=== PATIENT | female | born 1990 | race Caucasian/White ===

== ENCOUNTER 2019-11-05 16:09 | Outpatient (CLI) | payer BC, SELFPAY ==
--- NOTE | 2019-11-05 | USCV_ITS ---
Doug Della Age: 29 Gender: F : 1990 Exam Date: 11/05/2019 16:29 Ordering Phys: Kimmie Gomez Technologist: Gayla Marino Exam Location: [facility] [place] Indication: LT GROIN PAIN HISTORY: Lower extremity pain. PROCEDURES: Examined were the left greater saphenous, common femoral, femoral, profunda, popliteal, posterior tibial veins, and peroneal trunk.. FINDINGS: All veins examined appear free of thrombus. No filling defects on color Doppler flow analysis. Vein flow and caliber vary with respiration. Increase in venous flow with augmentation. All veins appear compressible.. CONCLUSIONS No evidence of left lower extremity DVT. Prelim results called to Kimmie Gomez @ 1635. Pt released per ordering physician. Alan Jewell MD (Electronically Signed) Final Date: 05 November 2019 16:43 S
== END 2019-11-05 16:10 | disposition home or self-care (01) ==
LOC: RAD 16:14
PROVIDERS: Family Provider Family Medicine; PCP Nurse Practitioner Family; Visit Provider Nurse Practitioner Family
DX: R10.32 Left lower quadrant pain (principal); M25.552 Pain in left hip
CPT/HCPCS: 93971

== ENCOUNTER → 2019-11-18 10:44 | Outpatient (BNVA) | payer BC, SELFPAY | PROVIDERS: Family Provider Family Medicine; PCP Nurse Practitioner Family; Referring Provider Nurse Practitioner Family; Visit Provider Otolaryngology | DX: H92.01 Otalgia, right ear (principal); J34.2 Deviated nasal septum; J34.3 Hypertrophy of nasal turbinates; J32.9 Chronic sinusitis, unspecified | CPT/HCPCS: 99203; 99214 ==

== ENCOUNTER 2019-11-26 07:40 | Day surgery (SDC) | payer BC, SELFPAY ==
[2019-11-24 10:24] VITALS: BMI 34.7
[2019-11-24 11:03] LABS: OR HCG Qualitative Urine Negative (Negative)
--- NOTE | 2019-11-24 11:08 | P.ANESASSM_ITS ---
Pre-Anesthetic Assessment Pre-Anesthetic Assessment: Height/Weight: Height 1.57 m Weight 86.183 kg Preop Diagnosis: Desire permanent sterilization Proposed Procedure: Operation Date: 11/26/19 07:00 Proposed Procedures p Laparoscopic Tubal Fulguration 88871 Z30.2(Not Applicable) - Florentino Pate MD s Laparoscopic Salpingectomy(Not Applicable) - Florentino Pate MD Social: Social History: No alcohol and No tobacco Exam: Pre-Anes Outpt Exam: alert, oriented x 3, clear to auscultation bila terally and regular rate & rhythm Airway: Submandibular: WNL Cervical ROM: WNL MP: 2 Dentition: Partials (upper) History/ROS: No significant history except as noted Pulmonary: Pulmonary: None reported CV/HEM: CV/HEM: HTN : : None reported Hepatic: Hepatic: None reported GI: GI: GERD (occ) Metabolic: Metabolic: None reported Musc/skel: Musc/skel: None reported Neuropsych: Neuropsych: Anxiety and Depression Anesthetic Plan: ASA status: 2 Anesthesia: Anesthesia Evaluation and General Risk of > 500 ml blood loss (7ml/kg in children): No PFSH Anesthesia PFSH: Medical History Chronic sinusitis Hypertension Nasal septal deformity Nasal turbinate hypertrophy Otalgia Patient denies medical problems Denies history of: Denies diabetes, asthma, hypertension, seizures, DVT/PE, Cardia, coughing, thyroid problems Surgical History H/O colposcopy with cervical biopsy LEEP done on 05/23/2018 at [facility] [place] by Dr. Villa for PAULA-2. Pathology showed anterior lip with [id number] clear, posterior lip-no dysplasia, ECC benign. Hx of tonsillectomy (~02/2014) Family History Grandmother Diabetes Maternal Hypertension maternal Father Hypertension Thyroid condition Grandfather Stroke paternal Unknown Patient denies medical problems Denies family history: Breast, uterine, ovarian, colon cancer, DVT/PE Social History Smoking and tobacco status: never smoked Alcohol intake: never Data Anesthesia Other Labs: Laboratory Results - last 48 hr 11/24/19 10:06 Urine HCG, Qual Negative Cardiac Studies: No Data to Display
[2019-11-24 11:53] LABS: Add Urine Microscopic? NO
[2019-11-24 11:59] LABS: Basophils % 0.2 %; Eosinophils # 0.1 10^3/uL (0.0-0.8); Eosinophils % 1.4 %; Hematocrit 40.9 % (37.0-47.0); Hemoglobin 13.1 g/dL (11.5-15.3); Lymphocytes # 1.7 10^3/uL (0.8-4.8); Lymphocytes % 28.7 %; Mean Corpuscular Hemoglobin 27.2 pg (28.0-34.0); Mean Corpuscular Volume 84.9 fL (81-99); Mean Platelet Volume 9.9 fL (7.4-10.4); Monocytes # 0.4 10^3/uL (0.2-0.9); Neutrophils # 3.7 10^3/uL (1.8-7.7); Neutrophils % 63.5 %; Nucleated Red Blood Cells % 0 %; Platelet Count 275 10^3/cmm (130-400); Red Blood Count 4.82 10^6/uL (4.1-5.3); Red Cell Distribution Width 12.8 % (12.1-15.1); White Blood Count 5.8 10^3/uL (4.0-10.0)
[2019-11-24 12:18] LABS: Bilirubin Urine Neg (NEGATIVE); Blood Urine Neg (Negative); Glucose Urine UA Norm (Normal); Ketones Urine Negative (Negative); Leukocyte Esterase Urine Negative (Negative); Nitrate Urine Negative (Negative); Protein Urine Neg (Negative); Specific Gravity, Urine 1.015 (1.005-1.030); Urine Appearance Clear (CLEAR); Urine Color Straw (Yellow); Urobilinogen Urine Norm (Negative)
[2019-11-24 12:25] LABS: Anion Gap 15.8 (5-19); Blood Urea Nitrogen 14 mg/dL (6-20); Calcium 10.3 mg/dL (8.5-10.5); Carbon Dioxide 26 mmol/L (22-29); Chloride 100 mmol/L (98-107); Glomerular Filtration Rate 117.4 mL/min (90-130); Glucose 99 mg/dL (65-115); Osmolality Calculated 282 mOsm/kg (285-295); Potassium 3.8 mmol/L (3.5-5.1); Sodium 138 mmol/L (136-145)
[2019-11-26] VITALS (8 sets, daily range): BP systolic 111–141; BP diastolic 69–90; PULSE 68–91; RESP 13–18; TEMP 36.3–37.1; O2SAT 96–99
[2019-11-26] MEDS: sodium chloride 0.9% 1,000 ML 30 ML IV (08:08)
--- NOTE | 2019-11-26 08:28 | ANES.PAUD2 ---
Pre-Anesthetic Update Pre-Anesthetic Assessment: Date of Surgery/Procedure: 11/26/19 Preop Diagnosis: Desire permanent sterilization Proposed Procedure: Operation Date: 11/26/19 09:25 Proposed Procedures p Laparoscopic Tubal Fulguration 26350 Z30.2(Not Applicable) - Florentino Pate MD s Laparoscopic Salpingectomy(Not Applicable) - Florentino Pate MD Any changes to Pre-Anesthetic Assessment?: No Last Intake: Intake Last Liquid Date 11/25/19 Last Solid Date 11/25/19 Labs Last 48hrs: Laboratory Results - last 48 hr 11/24/19 11/24/19 11/24/19 10:06 10:34 10:34 WBC 5.8 RBC 4.82 Hgb 13.1 Hct 40.9 MCV 84.9 MCH 27.2 L MCHC 32.0 RDW 12.8 Plt Count 275 MPV 9.9 Neut % (Auto) 63.5 Lymph % (Auto) 28.7 Harney % (Auto) 6.0 Eos % (Auto) 1.4 Baso % (Auto) 0.2 Neut # (Auto) 3.7 Lymph # (Auto) 1.7 Harney # (Auto) 0.4 Eos # (Auto) 0.1 Baso # (Auto) 0.0 Nucleated RBC % (a uto) 0 Nucleated RBCs # 0.0 Sodium 138 Potassium 3.8 Chloride 100 Carbon Dioxide 26 Anion Gap 15.8 BUN 14 Creatinine 0.6 GFR Calculation 117.4 Glucose 99 Calculated Osmolal ity 282 L Calcium 10.3 Urine Color Urine Appearance Urine pH Ur Specific Gravit y Urine Protein Urine Glucose (UA) Urine Ketones Urine Occult Blood Urine Nitrate Urine Bilirubin Urine Urobilinogen Ur Leukocyte Nimisha ase Urine HCG, Qual Negative Blood Type Antibody Screen 11/24/19 11/24/19 10:34 10:41 WBC RBC Hgb Hct MCV MCH MCHC RDW Plt Count MPV Neut % (Auto) Lymph % (Auto) Harney % (Auto) Eos % (Auto) Baso % (Auto) Neut # (Auto) Lymph # (Auto) Harney # (Auto) Eos # (Auto) Baso # (Auto) Nucleated RBC % (a uto) Nucleated RBCs # Sodium Potassium Chloride Carbon Dioxide Anion Gap BUN Creatinine GFR Calculation Glucose Calculated Osmolal ity Calcium Urine Color Straw Urine Appearance Clear Urine pH 5.0 Ur Specific Gravit y 1.015 Urine Protein Neg Urine Glucose (UA) Norm Urine Ketones Negative Urine Occult Blood Neg Urine Nitrate Negative Urine Bilirubin Neg Urine Urobilinogen Norm Ur Leukocyte Nimisha ase Negative Urine HCG, Qual Blood Type A Positive Antibody Screen Negative Vitals: Temperature 97.3 F L 11/26/19 07:50 Temperature Source Temporal Artery S can 11/26/19 07:50 Pulse Rate 75 11/26/19 07:50 Pulse Rhythm 11/26/19 07:50 Pulse Strength 3+ Normal 11/26/19 07:50 Respiratory Rate 18 11/26/19 07:50 Blood Pressure 115/85 11/26/19 07:50 Blood Pressure Clare n 95 11/26/19 07:50 Pulse Oximetry 98 11/26/19 07:50 Oxygen Delivery Me thod 11/26/19 07:50 Exam: Pre-Anes Outpt Exam: alert, oriented x 3, clear to auscultation bilaterally and regular rate & rhythm Cardiac Studies: No Data to Display
--- NOTE | 2019-11-26 08:40 | W.PM.OPSUD ---
Surgery/Procedure H&P Update DATE OF PROCEDURE: November 26, 2019 DATE H&P PERFORMED: 11/24/19 H&P UPDATE INFORMATION: I have reviewed H&P completed within last 30 days and I have examined patient prior to procedure PREOP DIAGNOSIS: Desire permanent sterilization PLANNED PROCEDURE: Operation Date: 11/26/19 09:25 Proposed Procedures p Laparoscopic Tubal Fulguration 07003 Z30.2(Not Applicable) - Florentino Pate MD s Laparoscopic Salpingectomy(Not Applicable) - Florentino Pate MD
[2019-11-26 08:43] LABS: OR HCG Qualitative Urine Negative (Negative)
[2019-11-26 08:47] LABS: OR HCG Qualitative Urine Negative (Negative)
[2019-11-26] MEDS: midazolam 1 mg/mL INJ 2 mL 2 MG IVP (09:10)
[2019-11-26] MEDS: vancomycin 1,000 MG in sodium chloride 0.9% 250 ML 250 MG IV (09:10)
--- NOTE | 2019-11-26 10:57 | SUR.OPER ---
1040 iud removed and inspected by dr. sullivan. disposed of in biohazard
--- NOTE | 2019-11-26 11:06 | PM.OP ---
Operative Report Date of procedure: November 26, 2019 Pre-op Diagnosis: Desire permanent sterilization Post-op diagnosis: same Post-op Diagnosis: desire permanent sterilization. Right physiological ovarian cyst. Post-op Findings: right physiological ovarian cyst, normal uterus, fallopian tubes, and ovaries Procedure Done: laparoscopic bilateral salpingectomy Specimens removed/disposition: left and right fallopian tube segments Surgeon: Florentino Pate Anesthesia: General Estimated blood loss (mL): 10 IV fluids (mL): 500 Urine output (mL): 300 Complications: none Findings: right physiological ovarian cyst, normal uterus, fallopian tubes, and ovaries. Mirena IUD. Condition: stable Disposition: PACU Brief History: 29-year-old female desire permanent sterilization Procedure: After informed consent, the patient was taken to the operating room where general anesthesia was administered. She was placed in the dorsal lithotomy position and prepped and draped in sterile fashion. Pre-Procedure Time-Out verifying the correct patient identity, correct procedure verified with consent, correct site and side, correct patient position, availability of correct implants and any special equipment or requirements was performed and acknowledge by the OR team. The patient was examined under anesthesia and found to have a normal uterus with normal adnexa. A weighted speculum was placed in the vagina, and the anterior lip of cervix was grasped with the single toothed tenaculum. IUD strings was visualized and grasped with ring forceps and the Mirena IUD was removed without complication. A uterine manipulator was advanced into the endocervical canal and uterus. The tenaculum was removed after uterine manipulator was secured. The speculum was removed from the vagina. An intraumbilical incision was made with a scalpel. While tenting up on the abdomen, a Verres needle was admitted into the intra-abdominal cavity. A saline drop test was performed and noted to be within normal limits. Pneumoperitoneum was attained with 4 liters of carbon dioxide. The Verres needle was removed. A 5 mm Opitc view trocar and sleeve were admitted into the abdomen and laparoscopic confirmation of location was achieved. A second incision was made 3 cm above the symphysis pubis, and a 5 mm trocar sleeves were admitted into the abdomen under direct laparoscopic visualization without complication. A survey revealed normal abdominal anatomy with the exception of string adhesion to the right lower anterior abdominal wall. A 5 mm blunt probe was advanced through the second trocar sleeve, and light manipulation of ovaries and uterus to assess the posterior aspects was performed. The pelvic survey shows normal uterus, left and right adnexa. The left ovary was noted with a follicular cyst. The string adhesion was fulgurated and transected with good hemostasis with the Boyant. The patient was placed into Trendelenburg position. The fallopian tubes were inspected bilaterally and the fimbriated ends of the fallopian tubes were visualized bilaterally. Attention was then directed to the right side. The fallopian tube and mesosalpinx were grasped and the underlying mesosalpinx was cauterized and cut using the Boyant device. Serial cauterization and cutting was used to separate the fallopian tube from the underlying mesosalpinx until it could be amputated cutting it approximated 2 cm from the cornua. Attention was then turned to the contralateral fallopian tube, which was removed in similar fashion. Both specimens were removed through the trocar and sent to pathology. The instruments were removed. The suprapubic trocar port was removed under direct visualization insuring good hemostasis. The carbon dioxide was allowed to escape from the abdomen. The intraumbilical trocar sleeve was withdrawn under visualization with laparoscope in the sleeve to insure hemostasis. The skin incisions were closed with 3-O Monocryl subcuticular stich and Dermabond. The instruments were removed from the vagina, and excellent hemostasis was noted. The patient tolerated the procedure well, and sponge, lap and needle count were correct times two. The patient was taken to the recovery room in good condition.
--- NOTE | 2019-11-26 11:17 | SUR.PHASEI ---
1110- ORAL AIRWAY OUT
== END 2019-11-26 12:46 | disposition home or self-care (01) ==
PROVIDERS: Anesthesiology; Family Provider Family Medicine; PCP Nurse Practitioner Family; Visit Provider Obstetrics & Gynecology
PROC: (CPT 58670; principal; 2019-11-26 09:25)
PROC: (CPT 58661; 2019-11-26 09:25)
PROC: 0UPD8HZ Removal of Contraceptive Device from Uterus and Cervix, Via Natural or Artificial Opening Endoscopic (ICD-10-PCS; CPT 58301; 2019-11-26 09:25)
DX: Z30.2 Encounter for sterilization (principal); N83.201 Unspecified ovarian cyst, right side
CPT/HCPCS: 58301; 58661; 12345; 36415; 80048; 81003; 81025; 84703; 85025; 86850; 86900; 87086; 88302; 96365; 96374; J0131; J1100; J1885; J2001; J2250; J2405; J2704; J2710; J2765; J3010; J3370; J3490; J7030; J7050

== ENCOUNTER → 2020-01-21 08:33 | Outpatient (BNVA) | payer BC, SELFPAY | PROVIDERS: Family Provider Family Medicine; PCP Nurse Practitioner Family; Visit Provider Nurse Practitioner Family | DX: R25.2 Cramp and spasm (principal); R53.83 Other fatigue; H92.09 Otalgia, unspecified ear | CPT/HCPCS: 80048; 85025 ==

== ENCOUNTER → 2020-03-16 10:11 | Outpatient (BNVA) | payer BC, SELFPAY | PROVIDERS: Family Provider Family Medicine; PCP Nurse Practitioner Family; Visit Provider Nurse Practitioner Family | DX: M54.9 Dorsalgia, unspecified (principal); N76.0 Acute vaginitis; B96.89 Other specified bacterial agents as the cause of diseases classified elsewhere | CPT/HCPCS: 81000 ==

== ENCOUNTER → 2020-05-25 14:56 | Outpatient (BNVA) | payer BC, SELFPAY | PROVIDERS: Family Provider Family Medicine; PCP Nurse Practitioner Family; Visit Provider Nurse Practitioner Family | DX: L02.419 Cutaneous abscess of limb, unspecified (principal); R51 Headache; W57.XXXA Bitten or stung by nonvenomous insect and other nonvenomous arthropods, initial encounter; S70.35 Superficial foreign body of thigh; L08.9 Local infection of the skin and subcutaneous tissue, unspecified | CPT/HCPCS: 87070; 87077; 87186 ==

== ENCOUNTER → 2020-08-09 15:34 | Outpatient (BNVA) | payer BC, SELFPAY | PROVIDERS: Family Provider Family Medicine; PCP Nurse Practitioner Family; Visit Provider Registered Nurse | DX: K21.9 Gastro-esophageal reflux disease without esophagitis (principal); R68.89 Other general symptoms and signs; J06.9 Acute upper respiratory infection, unspecified; R06.02 Shortness of breath; R05 Cough | CPT/HCPCS: 87400; 87635 ==

== ENCOUNTER → 2020-08-31 14:50 | Outpatient (BNVA) | payer BC, SELFPAY | PROVIDERS: Family Provider Family Medicine; PCP Nurse Practitioner Family; Visit Provider Nurse Practitioner Family | DX: R35.0 Frequency of micturition (principal) | CPT/HCPCS: 81000 ==

== ENCOUNTER 2021-02-17 14:51 | Outpatient (CLI) | payer OTHER, SELFPAY ==
--- NOTE | 2021-02-17 15:00 | USCV_ITS ---
Della Camacho Age: 30 Gender: F : 1990 Exam Date: 02/17/2021 15:11 Ordering Phys: Kimmie Gomez Technologist: Exam Location: [facility] [place] Indication: LT LEG PAIN Risk Factors: None Previous Vascular Surgery: None RIGHT LEFT BP: 125.0 / 72.00 BP: 125.0/ 72.00 0 0 Waveform Velocity (cm/s) Velocity (cm/s) Waveform Iliac Prox 108.0 Triphasic Iliac Mid 110.4 Triphasic Iliac Distal 85.7 Triphasic COATING SUPERVISOR 93.9 Triphasic SFA Prox 111.5 Triphasic SFA Mid 99.8 Triphasic SFA Dist 101.0 Triphasic POP 66.9 Triphasic INSPECTOR RAG SORTING 64.0 Triphasic DPA 49.6 Triphasic JUAN ALBERTO 1.0 FINDINGS Normal arterial Doppler waveforms on the left side Normal Doppler flow velocities Normal resting JUAN ALBERTO CONCLUSIONS No significant arterial obstruction in the left lower extremity, based on the above findings. Dr Berenice Mckeon MD FACC (Electronically Signed) Final Date: 18 Feb 2021 20:00 S
== END 2021-02-17 14:52 | disposition home or self-care (01) ==
LOC: US 14:53
PROVIDERS: PCP Nurse Practitioner Family; Visit Provider Nurse Practitioner Family
DX: M79.605 Pain in left leg (principal)
CPT/HCPCS: 93926

== ENCOUNTER → 2021-05-18 16:01 | Outpatient (BNVA) | payer OTHER, SELFPAY | PROVIDERS: PCP Nurse Practitioner Family; Visit Provider Nurse Practitioner Family | DX: Z20.822 Contact with and (suspected) exposure to COVID-19 (principal); R22.1 Localized swelling, mass and lump, neck; R05 Cough | CPT/HCPCS: 87635; 87880 ==

== ENCOUNTER → 2021-08-18 14:48 | Outpatient (BNVA) | payer OTHER, SELFPAY | PROVIDERS: PCP Nurse Practitioner Family; Visit Provider Nurse Practitioner Family | DX: R39.9 Unspecified symptoms and signs involving the genitourinary system | CPT/HCPCS: 81000 ==

== ENCOUNTER → 2021-10-25 16:06 | Outpatient (BNVA) | payer OTHER, SELFPAY | PROVIDERS: PCP Nurse Practitioner Family; Visit Provider Nurse Practitioner Family | DX: Z20.822 Contact with and (suspected) exposure to COVID-19 (principal); F41.9 Anxiety disorder, unspecified; M25.561 Pain in right knee; G89.29 Other chronic pain | CPT/HCPCS: 87486; 87581; 87633 ==

== ENCOUNTER → 2021-12-26 15:59 | Outpatient (BNVA) | payer OTHER, SELFPAY | PROVIDERS: PCP Nurse Practitioner Family; Visit Provider Nurse Practitioner Family | DX: R39.9 Unspecified symptoms and signs involving the genitourinary system (principal); B37.9 Candidiasis, unspecified | CPT/HCPCS: 81000 ==

== ENCOUNTER → 2022-03-13 13:11 | Outpatient (BNVA) | payer OTHER, SELFPAY | PROVIDERS: PCP Nurse Practitioner Family; Visit Provider Nurse Practitioner Family | DX: M54.9 Dorsalgia, unspecified (principal); R31.9 Hematuria, unspecified; N39.0 Urinary tract infection, site not specified | CPT/HCPCS: 81000; 87086 ==

== ENCOUNTER → 2022-05-24 14:11 | Outpatient (BNVA) | payer OTHER, SELFPAY | PROVIDERS: PCP Nurse Practitioner Family; Visit Provider Nurse Practitioner Family | DX: N39.0 Urinary tract infection, site not specified (principal); R31.9 Hematuria, unspecified | CPT/HCPCS: 81000; 87086 ==

== ENCOUNTER → 2022-05-31 10:40 | Outpatient (BNVA) | payer OTHER, SELFPAY | PROVIDERS: PCP Nurse Practitioner Family; Visit Provider Nurse Practitioner Family | DX: R10.2 Pelvic and perineal pain (principal); N89.8 Other specified noninflammatory disorders of vagina; Z12.4 Encounter for screening for malignant neoplasm of cervix | CPT/HCPCS: 87070; 87205; 88175 ==

== ENCOUNTER 2022-06-14 15:25 | Outpatient (CLI) | payer OTHER, SELFPAY ==
--- NOTE | 2022-06-14 16:00 | US_ITS ---
WS: [id number] ULTRASOUND PELVIS TECHNIQUE: Transabdominal. CLINICAL INFORMATION: pelvic and perinal pain LMP: June 01, 2022 : No. COMPARISON: None. FINDINGS: Uterus Orientation: Anteverted. Size: 9.1 cm x 6.7 cm x 4.6 cm Masses: None. Cervix: 3.2 cm. Endometrium: Small amount of fluid in the endometrium. Endometrium thickness: 13 mm Adnexa: Resolving LEFT ovarian cyst measuring 11 x 10 x 10 mm. Right ovary size: 2.6 cm x 3.3 cm x 1.9 cm. Right ovary volume: 8.6 ccm3 Left ovary size: 3.1 cm x 2.3 cm x 2.1 cm. Left ovary volume: 7.7 ccm3 Free fluid: None. Other findings: None. US/US pelvic complete* [id number] IMPRESSION: 1. Normal uterus. Small amount of fluid in the endometrium. Endometrium measur es 13 mm. 2. Normal ovaries bilaterally. Resolving LEFT ovarian cyst. 3. Normal adnexa and cul-de-sac.
== END 2022-06-14 15:26 | disposition home or self-care (01) ==
PROVIDERS: PCP Nurse Practitioner Family; Visit Provider Nurse Practitioner Family
DX: R10.2 Pelvic and perineal pain (principal)
CPT/HCPCS: 76856

== ENCOUNTER → 2022-10-13 14:45 | Outpatient (BNVA) | payer OTHER, SELFPAY | PROVIDERS: PCP Nurse Practitioner Family; Visit Provider Nurse Practitioner Family | DX: N39.0 Urinary tract infection, site not specified (principal) | CPT/HCPCS: 81000 ==

== ENCOUNTER → 2024-07-22 14:06 | Outpatient (BNVA) | payer OTHER, SELFPAY | PROVIDERS: PCP Nurse Practitioner Family; Visit Provider Registered Nurse Neonatal Intensive Care | DX: S62.602A Fracture of unspecified phalanx of right middle finger, initial encounter for closed fracture (principal); X58.XXXA Exposure to other specified factors, initial encounter | CPT/HCPCS: 73130 ==

== ENCOUNTER → 2024-08-05 11:29 | Outpatient (BNVA) | payer OTHER, SELFPAY | PROVIDERS: PCP Nurse Practitioner Family; Visit Provider Registered Nurse Neonatal Intensive Care | DX: M79.641 Pain in right hand (principal); S62.91XD Unspecified fracture of right hand, subsequent encounter for fracture with routine healing; X58.XXXD Exposure to other specified factors, subsequent encounter | CPT/HCPCS: 73130 ==

== ENCOUNTER → 2024-11-25 07:43 | Outpatient (BNVA) | payer OTHER, SELFPAY | PROVIDERS: PCP Nurse Practitioner Family; Visit Provider Nurse Practitioner Family | DX: N89.8 Other specified noninflammatory disorders of vagina (principal) | CPT/HCPCS: 81000 ==

== ENCOUNTER → 2024-12-23 13:42 | Outpatient (BNVA) | payer OTHER, SELFPAY | PROVIDERS: PCP Nurse Practitioner Family; Visit Provider Registered Nurse | DX: J06.9 Acute upper respiratory infection, unspecified (principal); B37.9 Candidiasis, unspecified | CPT/HCPCS: 85025 ==

== ENCOUNTER → 2025-08-10 15:42 | Outpatient (BNVA) | payer MEDICAID, SELFPAY | PROVIDERS: PCP Nurse Practitioner Family; Visit Provider Nurse Practitioner Family | DX: J02.9 Acute pharyngitis, unspecified (principal) | CPT/HCPCS: 87880 ==